=== PATIENT | male | born 1995 | race Caucasian/White ===

== ENCOUNTER 2019-02-24 18:35 | Emergency (ER) | payer SELFPAY ==
[2019-02-24 18:45] VITALS: BP 128/74; PULSE 81; RESP 18; TEMP 36.9; O2SAT 99
[2019-02-24 18:55] LABS: Microscopic, Urine URINE MICROSCOPIC (MICROSCOPIC)
[2019-02-24 19:03] LABS: Appearance,Urine CLEAR (Clear); Bilirubin,Urine Negative (Negative); Blood, Urine Negative (Negative); Color,Urine YELLOW (Yellow); Glucose,Urine (UA) Negative (Negative); Ketones,Urine Negative (Negative); Leukocyte Esterase,Urine Negative (Negative); Nitrate,Urine Negative (Negative); Protein,Urine Negative (Negative)
[2019-02-24 19:04] VITALS: BP 119/73; PULSE 75; O2SAT 96
[2019-02-24 19:12] LABS: Basophils # 0.1 K/mm3 (0-0.2); Basophils % 1.5 % (0.1-2.0); Eosinophils # 0.1 K/mm3 (0.0-0.4); Eosinophils % 2.5 % (0.1-12.0); Hematocrit 45.5 % (42.0-52.0); Hemoglobin 15.6 g/dL (14.1-18.0); Lymphocytes # 1.6 K/mm3 (0.7-4.5); Lymphocytes % 28.9 % (10-50); Mean Corpuscular HGB Conc 34.4 g/dL (31.8-35.4); Mean Corpuscular Hemoglobin 28.7 pg (27.0-31.2); Mean Corpuscular Volume 83.5 fl (80-94); Mean Platelet Volume 6.8 fl (7.4-10.4); Monocytes # 0.3 K/mm3 (0.1-1.0); Monocytes % 5.2 % (1.7-9.3); Neutrophils # 3.5 K/mm3 (1.8-7.8); Neutrophils % 61.9 % (37.0-80.0); Platelet Count 410 K/mm3 (142-424); Red Blood Count 5.45 M/mm3 (4.60-6.20); Red Cell Distribution Width 12.9 % (11.5-17.5); White Blood Count 5.7 K/mm3 (4.8-10.8)
[2019-02-24 19:24] LABS: Alanine Aminotransferase 79 U/L (12-78); Albumin Level 4.6 gm/dL (3.4-5.0); Albumin/Globulin Ratio 1.3 (1.1-1.8); Alkaline Phosphatase 54 U/L (46-116); Anion Gap 11.6 mEq/L (5-15); Aspartate Amino Transferase 29 U/L (15-37); Bilirubin,Total 0.7 mg/dL (0.2-1.0); Blood Urea Nitrogen 13 mg/dL (7-18); Calcium 9.6 mg/dL (8.5-10.1); Carbon Dioxide 27 mmol/L (21.0-32.0); Chloride 103 mmol/L (98-107); Creatinine Clearance Estimated 13 mL/min (50-200); Creatinine,Serum 1.13 mg/dL (0.70-1.30); Estimated Glomerular Filt Rate 82 ml/min (>60); GFR (African American) 99 ML/MIN (>60); Globulin 3.6 gm/dl (1.3-3.2); Glucose 93 mg/dL (74-106); Potassium 3.6 mmoL/L (3.5-5.1); Sodium 138 mmol/L (136-145); Total Protein,Serum 8.2 gm/dL (6.4-8.2)
--- NOTE | 2019-02-24 19:24 | PC.NURSE ---
contacted melt house drag operator at [facility] to obtain previous u/s report on pt. Stated she was in the room with a pt and asked that we contact her back in approx 30 minutes and she will get records for us. Relayed information to nightshift.
--- NOTE | 2019-02-24 19:25 | PC.NURSE ---
shift change report given to SIMON Cosme
[2019-02-24 19:28] LABS: Squamous Epithelial Cell,Urine Occasional #/hpf (0-5); WBC,Urine Occasional #/hpf (0-3)
[2019-02-24 19:29] LABS: Bacteria,Urine Trace /lpf; Sperm,Urine OCC /lpf
--- NOTE | 2019-02-24 19:49 | PC.NURSE ---
Called [facility] to get medical records on the patient and an ultrasound report from a month ago. supervisor [employer] said she would send the records shortly. RN and ER MD notified.
[2019-02-24 20:30] VITALS: BP 112/95; PULSE 71; RESP 16; O2SAT 100
--- NOTE | 2019-02-24 20:45 | HMH.EDGENADL ---
ED Disposition Clinical Impression: Epididymitis, left Disposition: Home, Self-Care Condition on Discharge: Good Instructions: DI for Epididymitis Additional Instructions: use meds and see pcp and urologist for follow up Prescriptions: levoFLOXacin [Levaquin 500mg tab] 500 mg PO DAILY #7 tab predniSONE [Prednisone 20mg Tab] 20 mg PO BID #10 tab Referrals: Provider,Gianna, [Primary Care Provider] - Ruslan Ivy MD [Staff Physician] - Eduardo Feliciano MD [Staff Physician] - - Critical Care Critical Care Time: No Attestation: On 02/24/19, the high probability of a clinically significant, sudden or life threatening deterioration of the following system(s) required my full and direct attention, intervention and personal management. The time I documented below is in addition to time spent performing reported procedures but includes the following listed in this critical care notation. Medical Decision Making - Medical Records Medical records reviewed: Yes: I reviewed the patient's medical records. - Bobby Inquiry Pt receiving controlled substance: No Vital Signs: 02/24/19 18:45 02/24/19 19:04 02/24/19 20:30 Temperature 98.5 F Temperature Source Oral Pulse Rate [Left Radial] 81 75 71 Respiratory Rate 18 16 Blood Pressure [Left Arm] 128/74 119/73 112/95 H Blood Pressure Mean [Left Arm] 92 88 100 Blood Pressure Source [Left Arm] Automatic Cuff Automatic Cuff Blood Pressure Position [Left Arm] Sitting Sitting 02 Sat by Pulse Oximetry 99 96 100 Oxygen Delivery Method Room Air Room Air - Lab Data Lab results reviewed: Yes: I reviewed the patient's lab results. Lab Results 02/24/19 18:30: Urine Color Yellow, Urine Appearance Clear, Urine pH 7.0, Ur Specific [place] 1.020, Urine Protein Negative, Urine Glucose (UA) Negative, Urine Ketones Negative, Urine Blood Negative, Urine Nitrate Negative, Urine Bilirubin Negative, Urine Urobilinogen 1.0, Ur Leukocyte Esterase Negative, Urine WBC Occasional, Ur Squamous Epith Cells Occasional, Urine Bacteria Trace, Urine Sperm Occ 02/24/19 19:00: WBC 5.7, RBC 5.45, Hgb 15.6, Hct 45.5, MCV 83.5, MCH 28.7, MCHC 34.4, RDW 12.9, Plt Count 410, MPV 6.8 L, Neut % (Auto) 61.9, Lymph % (Auto) 28.9, [place] % (Auto) 5.2, Eos % (Auto) 2.5, Baso % (Auto) 1.5, Neut # (Auto) 3.5, Lymph # (Auto) 1.6, [place] # (Auto) 0.3, Eos # (Auto) 0.1, Baso # (Auto) 0.1 02/24/19 19:00: Sodium 138, Potassium 3.6, Chloride 103, Carbon Dioxide 27, Anion Gap 11.6, BUN 13, Creatinine 1.13, Estimated Creat Clear 13, Estimated GFR 82, Est GFR ( Amer) 99, Glucose 93, Calcium 9.6, Total Bilirubin 0.7, AST 29, ALT 79 H, Alkaline Phosphatase 54, Total Protein 8.2, Albumin 4.6, Globulin 3.6 H, Albumin/Globulin Ratio 1.3 Result diagrams: 02/24/19 19:00 02/24/19 19:00 General Adult HPI - General Chief complaint: PAIN Stated complaint: Pain Lower Stomach Penis,Swollen Time Seen by Provider: 02/24/19 20:05 Mode of Arrival: Ambulatory Source of Information: Patient, Medical Record Limitations: No Limitations Description of Symptoms (Recalled from ER Triage Doc. by RN): Pt c/o L testicular pain that began yesteray morning. Pt reports a little swelling to L testicle. Pt reports he has had similar symptoms previously was seen at [facility] and was told he had an issue with a vein in his testicle and semen was where urine should be . States he was given a prescription and symptoms resolved in 2-3 days. - History of Present Illness HPI narrative: lt testicular pain which started yesterday w/o trauma or hematuria and no penile d/c - has prev proble and was seen [facility] and had doppler with lt epididymal head cyst Onset (ago): day(s) Location: genitals Severity: moderate Associated symptoms: denies other symptoms Treatments prior to arrival: none - Related Data Previous Rx's Medication Instructions Recorded levoFLOXacin [Levaquin 500mg 500 mg PO DAILY #7 tab 02/24/19 tab
--- NOTE | 2019-02-24 20:49 | ED_ITS ---
ED Disposition Clinical Impression: Epididymitis, left Disposition: Home, Self-Care Condition on Discharge: Good Instructions: DI for Epididymitis Additional Instructions: use meds and see pcp and urologist for follow up Prescriptions: levoFLOXacin [Levaquin 500mg tab] 500 mg PO DAILY #7 tab predniSONE [Prednisone 20mg Tab] 20 mg PO BID #10 tab Referrals: Provider,Gianna, [Primary Care Provider] - Ruslan Ivy MD [Staff Physician] - Eduardo Feliciano MD [Staff Physician] - - Critical Care Critical Care Time: No Attestation: On 02/24/19, the high probability of a clinically significant, sudden or life threatening deterioration of the following system(s) required my full and direct attention, intervention and personal management. The time I documented below is in addition to time spent performing reported procedures but includes the following listed in this critical care notation. Medical Decision Making - Medical Records Medical records reviewed: Yes: I reviewed the patient's medical records. - Bobby Inquiry Pt receiving controlled substance: No Vital Signs: 02/24/19 18:45 02/24/19 19:04 02/24/19 20:30 Temperature 98.5 F Temperature Source Oral Pulse Rate [Left Radial] 81 75 71 Respiratory Rate 18 16 Blood Pressure [Left Arm] 128/74 119/73 112/95 H Blood Pressure Mean [Left Arm] 92 88 100 Blood Pressure Source [Left Arm] Automatic Cuff Automatic Cuff Blood Pressure Position [Left Arm] Sitting Sitting 02 Sat by Pulse Oximetry 99 96 100 Oxygen Delivery Method Room Air Room Air - Lab Data Lab results reviewed: Yes: I reviewed the patient's lab results. Lab Results 02/24/19 18:30: Urine Color Yellow, Urine Appearance Clear, Urine pH 7.0, Ur Sp [place] 1.020, Urine Protein Negative, Urine Glucose (UA) Negative, Urine Ketones Negative, Urine Blood Negative, Urine Nitrate Negative, Urine Bilirubin Negative, Urine Urobilinogen 1.0, Ur Leukocyte Esterase Negative, Urine WBC Occasional, Ur Squamous Epith Cells Occasional, Urine Bacteria Trace, Urine Sperm Occ 02/24/19 19:00: WBC 5.7, RBC 5.45, Hgb 15.6, Hct 45.5, MCV 83.5, MCH 28.7, MCHC 34.4, RDW 12.9, Plt Count 410, MPV 6.8 L, Neut % (Auto) 61.9, Lymph % (Auto) 28.9, [place] % (Auto) 5.2, Eos % (Auto) 2.5, Baso % (Auto) 1.5, Neut # (Auto) 3.5, Lymph # (Auto) 1.6, [place] # (Auto) 0.3, Eos # (Auto) 0.1, Baso # (Auto) 0.1 02/24/19 19:00: Sodium 138, Potassium 3.6, Chloride 103, Carbon Dioxide 27, Anion Gap 11.6, BUN 13, Creatinine 1.13, Estimated Creat Clear 13, Estimated GFR 82, Est GFR ( Amer) 99, Glucose 93, Calcium 9.6, Total Bilirubin 0.7, AST 29, ALT 79 H, Alkaline Phosphatase 54, Total Protein 8.2, Albumin 4.6, Globulin 3.6 H, Albumin/Globulin Ratio 1.3 Result diagrams: 02/24/19 19:00 02/24/19 19:00 General Adult HPI - General Chief complaint: PAIN Stated complaint: Pain Lower Stomach Penis,Swollen Time Seen by Provider: 02/24/19 20:05 Mode of Arrival: Ambulatory Source of Information: Patient, Medical Record Limitations: No Limitations Description of Symptoms (Recalled from ER Triage Doc. by RN): Pt c/o L testicular pain that began yesteray morning. Pt reports a little swelling to L testicle. Pt reports he has had similar symptoms previously was seen at [facility] and was told he had an issue with a vein in his testicle an
[2019-02-24 21:11] VITALS: BP 124/78; PULSE 87; RESP 16; TEMP 36.8; O2SAT 98
== END 2019-02-24 21:11 | disposition home or self-care (01) ==
PROVIDERS: Emergency Provider Emergency Medicine
DX: N45.1 Epididymitis (principal)
CPT/HCPCS: 80053; 81001; 85025; 99283